=== PATIENT | female | born 1985 | race African-American/Black ===

== ENCOUNTER 2016-12-13 17:16 | Emergency (ER) | payer BC | END 2016-12-13 18:05 | disposition home or self-care (01) | LOC: BURERS 17:16 | DX: H60.91 Unspecified otitis externa, right ear (principal); J45.909 Unspecified asthma, uncomplicated; F41.9 Anxiety disorder, unspecified; F31.9 Bipolar disorder, unspecified; F17.210 Nicotine dependence, cigarettes, uncomplicated | CPT/HCPCS: 99282 ==

== ENCOUNTER 2016-12-25 16:41 | Emergency (ER) | payer BC | END 2016-12-25 16:58 | disposition home or self-care (01) | LOC: BURERS 16:41 | DX: M27.0 Developmental disorders of jaws (principal); J45.909 Unspecified asthma, uncomplicated; F41.9 Anxiety disorder, unspecified; F31.9 Bipolar disorder, unspecified; F17.210 Nicotine dependence, cigarettes, uncomplicated; Z79.899 Other long term (current) drug therapy | CPT/HCPCS: 99283 ==

== ENCOUNTER 2017-02-17 11:18 | Emergency (ER) | payer BC ==
[2017-02-17 11:46] LABS: #Basophils 0.2 thou/uL (0.0-0.2); #Eosinphils 0.1 thou/uL (0.0-0.7); #Monocytes 0.6 thou/uL (0.11-0.59); #Neutrophils 4.4 thou/uL (1.40-6.50); %Basophils 1.9 % (0.0-1.0); %Eosinophils 0.9 % (0.0-10.0); %Lymphocytes 43.2 % (21.0-51.0); %Monocytes 6.9 % (0.0-10.0); %Neutrophils 47.1 % (42.0-75.0); Hemoglobin 13.7 g/dL (12.0-16.0); Mean Corpuscular HGB CONC 34.8 g/dL (32.0-36.0); Mean Corpuscular Hemoglobin 32.9 pg (27.0-31.0); Mean Corpuscular Volume 94.7 fl (81.0-99.0); Mean Platelet Volume 9.9 fL (7.4-10.4); Platelet Count 186 thou/uL (130-400); RBC Distribution Width 12.2 % (11.5-14.5); Red Blood Cell (RBC) Count 4.17 mill/uL (4.20-5.40); White Blood Cell (WBC) Count 9.3 thou/uL (4.8-10.8)
[2017-02-17 11:53] LABS: INR-International Normal Ratio 1.2; PTT 30.9 SEC (22.9-36.1); Prothrombin Time 15.1 SEC (12.0-14.7)
[2017-02-17 12:00] LABS: ALT (SGPT) 9 U/L (8-55); AST (SGOT) 10 U/L (5-34); Albumin 4.3 g/dL (3.5-5.0); Alkaline Phosphatase 64 U/L (40-150); Anion Gap 13 mmol/L (10-20); BUN (Urea Nitrogen) 10 mg/dL (7.0-18.7); Bilirubin, Total 0.5 mg/dL (0.2-1.2); Calc. Creatinine Clearance 0 mL/min (70-130); Calcium 9.6 mg/dL (7.8-10.44); Carbon Dioxide 24 mmol/L (22-29); Chloride 106 mmol/L (98-107); Estimated GFR-MDRD Greater than 90; Globulin 3.1 g/dL (2.4-3.5); Glucose 103 mg/dL (70-105); Potassium 3.6 mmol/L (3.5-5.1); Protein, Total 7.4 g/dL (6.0-8.3); Sodium 139 mmol/L (136-145)
[2017-02-17 12:04] LABS: CKMB 0.8 ng/mL (0-6.6); Troponin I Less than 0.010 ng/mL (< 0.028)
--- NOTE | 2017-02-17 17:13 | RAD ---
PORTABLE CHEST: Date: 02-17-17 An AP portable film at 1136 is compared with a 02-17-11 study. FINDINGS: The heart remains normal in size and the lungs are clear. No infiltrate or effusion was seen. There is no vascular congestion, edema, or sign of pneumothorax. The mediastinum appears normal and the tr achea is midline. IMPRESSION: No acute thoracic findings. POS: HOME
== END 2017-02-17 12:24 | disposition home or self-care (01) ==
LOC: BURERS 11:18
DX: M79.7 Fibromyalgia (principal); J45.909 Unspecified asthma, uncomplicated; F41.9 Anxiety disorder, unspecified; F31.9 Bipolar disorder, unspecified; F17.210 Nicotine dependence, cigarettes, uncomplicated; Z79.899 Other long term (current) drug therapy
CPT/HCPCS: 71010; 80053; 82553; 84484; 85025; 85610; 85730; 93005; 94760